=== PATIENT | female | born 1995 | race Caucasian/White ===

== ENCOUNTER 2021-09-21 20:57 | Emergency (ER) | payer OTHER ==
[2021-09-21] MEDS ORDERED: methylPREDNISolone NA SUCC 40 MG/1 ML VIAL IVPUSH ONE ×2 (21:11→21:14)
[2021-09-21] MEDS ORDERED: diphenhydrAMINE HCL 25 MG CAPSULE (FP) PO ONE ×3 (21:12→21:14)
[2021-09-21] MEDS ORDERED: methylPREDNISolone NA SUCC 40 MG/1 ML VIAL ONE (21:14)
[2021-09-21 21:22] VITALS: TEMP 97.6; BMI 19.5
[2021-09-21 21:46] VITALS: BP 112/83; PULSE 66; RESP 18
== END 2021-09-21 22:32 | disposition home or self-care (01) ==
LOC: FER 20:57
PROC: 3E033GC Introduction of Other Therapeutic Substance into Peripheral Vein, Percutaneous Approach (ICD-10-PCS; principal; 2021-09-21)
DX: T78.40XA Allergy, unspecified, initial encounter (principal)
CPT/HCPCS: 99284-25